=== PATIENT | male | born 1940 | race Caucasian/White ===

== ENCOUNTER 2025-04-25 11:33 | Outpatient (CLI) | payer MEDICARE, MEDICAID ==
[~2025-04-25 11:33] MED LIST: ATOR40TA PO; CLOP75TA34 PO; DIPH-735 PO; DULO60CA65 PO; LEVO125T PO; LOSA50TA64 PO; META-117 PO; OXYC-150 PO; PREG150C PO
--- NOTE | 2025-04-25 13:28 | RADIOLOGY REPORT ---
EXAM: CT CT SINUS HISTORY: POSTNASAL DRIP COMPARISON: None TECHNIQUE: Noncontrast axial CT images of the paranasal sinuses were performed. Coronal and sagittal reformatted images were obtained. Radiation dose: CTDIvol 54.49 mGy, DLP 725.2 mGy*cm. This CT exam was performed using one or more of the following dose reduction techniques: Automated exposure control, adjustment of the mA and/or kV according to patient size, or use of iterative reconstruction technique. FINDINGS: There is mild mucosal thickening of the right maxillary sinus. The other paranasal sinuses are clear. No facial bone fractures are identified. The nasal septum is deviated to the right. The OMCs are patent. No tyrone bullosa or Emiliana cells. The middle ear spaces and right mastoid air cells are clear. There is a small amount of fluid in the left mastoid air cells. There are postoperative changes of bilateral cataract extraction surgery. IMPRESSION: 1. Mild right maxillary sinus disease. The other paranasal sinuses are clear. 2. Rightward deviation of the nasal septum. 3. Small amount of fluid in the left mastoid air cells may be due to sterile fluid or mastoiditis.
== END 2025-04-25 23:59 | disposition home or self-care (01) ==
LOC: RAD 11:33
PROVIDERS: ATTEND Nurse Practitioner Occupational Health
DX: J32.0 Chronic maxillary sinusitis (principal); J34.2 Deviated nasal septum; J34.89 Other specified disorders of nose and nasal sinuses; R09.82 Postnasal drip; Z98.890 Other specified postprocedural states
CPT/HCPCS: 70486

== ENCOUNTER 2025-06-22 07:43 | Emergency (ER) | payer MEDICARE, MEDICAID ==
[~2025-06-22] VITALS: Ht 180.3 cm; Wt 85.6 kg
[2025-06-22 07:47] VITALS: TEMP 97.3
--- NOTE | 2025-06-22 08:47 | RADIOLOGY REPORT ---
CLINICAL INFORMATION: Cough. TECHNIQUE: Single AP portable chest radiograph was obtained. COMPARISON: None FINDINGS: Lungs: Clear. Cardiac: Heart size is within normal limits. Pacemaker leads extend to the right atrium and right ventricle. Pulmonary vasculature: Unremarkable. Mediastinum/mireya: Unremarkable. Bones: No acute osseous abnormality identified. Other: No other significant findings. IMPRESSION: No evidence of acute disease in the chest.
--- NOTE | 2025-06-22 08:52 | Physician Documentation ---
History of Present Illness ~ Chief Complaint: See Chief Complaint Stated Complaint: MULTIPLE MED COMPLAINTS Time Seen by MD: 09:19 Primary Medical Doctor: CONOR SNIDER An 85-year-old male who denies any history of chronic lung problems. He presents to the emergency department due to concerns for lack of improvement in a cough that he has had ever since exposure to chemicals. He just completed a course of antibiotics, last dose this morning. He denies chills or fever, but does endorse feeling overall unwell and having a cough that is productive of green sputum. Medication Reconciliation Allergies: Coded Allergies: shellfish derived (Verified Allergy, Severe, 06/22/25) fentanyl (Unverified Allergy, Unknown, 06/22/25) morphine (Unverified Allergy, Unknown, 06/22/25) Scheduled Atorvastatin Calcium* (Lipitor*), 1 TAB PO HS Clopidogrel Bisulfate (Clopidogrel), 75 MG PO DAILY Diphenhydramine Hcl (Sleep-Aid), 50 MG PO HS, (Reported) Duloxetine HCl (Duloxetine HCl), 1 CAP PO HS, (Reported) Levothyroxine Sodium (Synthroid), 1 TAB PO DAILY, (Reported) Losartan Potassium (Losartan Potassium), 1 TAB PO DAILY, (Reported) Metaxalone (Metaxalone), 1,600 MG PO HS, (Reported) Oxycodone HCl/Acetaminophen (Percocet 10-325 mg Tablet), 1 TAB PO Q4H Pregabalin (Lyrica), 1 CAP PO Q12H Past Medical History Past Medical History: High Cholesterol, Anemia, Hypothyroidism, Chronic Back Pain Past Surgical History: other Patient History: (COPD) Chronic obstructive lung disease MOTHER, Onset:40's - 50 (CVA) Cerebrovascular accident FATHER, Onset:60 years & older Alcohol Use: Occasionally Drug Use: none Physical Exam Vital Signs: Temperature: 97.3, Heart Rate: 58, Respiratory Rate: 20, BP: 137/71, Pulse Oximetry: 93, Weight: 85.600 Oxygen Flow Rate: 0 Progress Results/Orders Results/Orders Orders - SARA AMANDA NP Svn Treatment (06/22/25 09:36) Hs Troponin I W Calculations (06/22/25 09:36) Completed Orders - SARA AMANDA NP Cbc/Diff (06/22/25 08:52) Hs Troponin I W Calculations (06/22/25 08:52) CMP (06/22/25 08:52) PBNP (06/22/25 08:52) Electrocardiogram (06/22/25 09:36) Ipratropium/Albuterol Nebule (Ipratrop/A (06/22/25 09:40) Medications Received in ER Medications (Trade) Dose Ordered Sig/Shiva Route PRN Reason Start Time Stop Time Status Last Admin Dose Admin (ipratrop/ albuterol 0.5-3(2.5) MG/3ml nebule) 3 ml ONCE ONCE NEB 06/22/25 09:40 06/22/25 09:41 DC 06/22/25 10:10 3 ML Vital Signs 06/22/25 06/22/25 06/22/25 06/22/25 07:47 10:00 10:12 10:19 Temp 97.3 Pulse 58 60 65 Resp 20 18 20 20 B/P (MAP) 137/71 Pulse Ox 93 99 95 O2 Delivery Room Air* Room Air* O2 Flow Rate 0 0 0 FiO2 21 21 Laboratory Tests Test 06/22/25 10:45 White Blood Count 6.6 Red Blood Count 4.24 L Hemoglobin 12.1 L Hematocrit 37.0 L Mean Corpuscular Volume 87.2 Mean Corpuscular Hemoglobin 28.6 Mean Corpuscular Hemoglobin Concent 32.8 L Red Cell Distribution Width 18.1 H Platelet Count 121 L Mean Platelet Volume 8.3 Neutrophils (%) (Auto) 53.6 Lymphocytes (%) (Auto) 29.9 Monocytes (%) (Auto) 13.9 H Eosinophils (%) (Auto) 1.8 Basophils (%) (Auto) 0.8 Neutrophils # (Auto) 3.5 Lymphocytes # (Auto) 2.0 Monocytes # (Auto) 0.9 Eosinophils # (Auto) 0.1 Basophils # (Auto) 0.1 CBC Comment Sodium Level 140 Potassium Level 4.4 Chloride Level 106 Carbon Dioxide Level 30.0 Anion Gap 4 L Blood Urea Nitrogen 18 Creatinine 1.32 H Estimated GFR/1.73 m2 51 BUN/Creatinine Ratio 13.6 Glucose Level 89 Calcium Level 8.2 L Total Bilirubin 0.4 Aspartate Amino Transf (AST/SGOT) 27 Alanine Aminotransferase (ALT/SGPT) 17 Alkaline Phosphatase 85 Troponin I High Sensitivity 19 Pro-B-Type Natriuretic Peptide 793 H Total Protein 6.2 L Albumin 3.1 L Globulin 3.1 Albumin/Globulin Ratio 1.0 L Chemistry Comments EKG/XRAY/CT/US/VASC/MRI Chest X-Ray : Additional Comments [facility] [address] , [place], [facility] [address] DIAGNOSTIC RADIOLOGY Patient: ROCKY CAVAZOS Medical Record: [id number] [facility] : 1940, Age: 85 Sex: Male Location: ER Patient Status: [facility] ER Service Date/Time: 06/22/25758 Ordering Physician: NICOLE FRANKS MD Exam: CHEST,SINGLE VIEW CLINICAL INFORMATION: Cough. TECHNIQUE: Single AP portable chest radiograph was obtained. COMPARISON: None FINDINGS: Lungs: Clear. Cardiac: Heart size is within normal limits. Pacemaker leads extend to the right atrium and right ventricle. Pulmonary vasculature: Unremarkable. Mediastinum/mireya: Unremarkable. Bones: No acute osseous abnormality identified. Other: No other significant findings. IMPRESSION: No evidence of acute disease in the chest. Electronically Signed by:NICANOR CAMPO DO Date & Time: 06/22/25844 Dictated by: NICANOR CAMPO DO Dictation date and time: 06/22/25824 Primary Care Provider: NO PRIMARY CARE PROVIDER cc: NICOLE FRANKS MD ~ Medical Decision Making Additional information obtaine: family Findings accompanies him Differential Dx:Considerations: Include: Allergic rhinitis, Influenza, Otitis media, Peritonsillar abscess, Pharyngitis-Diphtheria, Pharyngitis-Streptoccal, Pharyngitis-Viral, Pneumonia, Pnuemonitis, Sinusitis, URI Differential Diagnosis No PNA. Very elderly. Productive cough with green sputum. Tx with medrol dose pack, tessalon perles, doxycycline. Return if worse. Departure Time of Disposition: 11:54 Disposition: 01 HOME / SELF CARE / HOMELESS Impression: Primary Impression: Cough Condition: Stable Discharge Instructions: Cough, Adult Additional Instructions: No Pneumonia on CXR. Labs don't show evidence of sepsis. See your primary care for followup within the next few days. Use the prescribed tessalon perles and medrol dosepack. This should help your cough. Take the doxycycline. Referrals: NO PRIMARY CARE PROVIDER (PCP) Prescriptions Benzonatate* (Benzonatate*) 100 Mg Capsule 1 CAP PO Q8H for cough for 10 Days, #30 CAP Prov: SARA AMANDA NP 06/22/25 Doxycycline Hyclate (Doxycycline Hyclate) 100 Mg Capsule 1 CAP PO Q12H for 7 Days, #14 CAP Prov: SARA AMANDA NP 06/22/25 Methylprednisolone (Medrol Dosepak) 4 Mg Tab.ds.pk 0 PO UD, #21 TAB 0 Refills take 6 Pills Day 1, 5 Pills Day 2, 4 Pills Day 3, 3 Pills Day 4, 2 Pills Day 5 and 1 pill Day 6 Prov: SARA AMANDA NP 06/22/25 Education Educated: Patient Educated regarding: diagnosis, treatment, prognosis, need for follow up Signature Scribe Signature: x Attestation: The note accurately reflects work and decisions made by me.Sara Pelaez NP 06/22/25 11:57 SARA AMANDA NP Jun 22, 2025 08:52
--- NOTE | 2025-06-22 10:07 | ELECTROCARDIOGRAPH REPORT ---
[facility] Test Date: 2025-06-22 Test Time: 10:04:57 Pat Name: ROCKY CAVAZOS Department: [facility]- Patient ID: [facility]-[id number] Room: Gender: M Outpatient Interviewing Clerk: : 1940 Requested By: LISHA AMANDA Order Number: [id number] Reading MD: Measurements Intervals [place] Rate: 60 P: -23 [place]: 190 QRS: -59 QRSD: 153 T: 93 QT: 480 QTc: 480 Interpretive Statements Atrial-ventricular dual-paced rhythm No further analysis attempted due to paced rhythm Baseline wander in lead(s) V6 Please click the below link to view image of tracing.
[2025-06-22] MEDS: ipratropium/albuterol 3ml nebule NEB ONE (10:10)
[2025-06-22 10:12] VITALS: PULSE 60; RESP 20; O2SAT 99
[2025-06-22 10:19] VITALS: PULSE 65; RESP 20; O2SAT 95
[2025-06-22 11:12] LABS: MEAN PLATELET VOLUME 8.3 FL (7.4-10.4); RED CELL DISTRIBUTION WIDTH 18.1 % (11.5-14.5)
[2025-06-22 11:28] LABS: CREATININE 1.32 MG/DL (0.60-1.10); TOTAL CARBON DIOXIDE 30.0 MMOL/L (24-32); eCRCL 42 ML/MIN; eGFR 51 ML/MIN
[2025-06-22 11:33] LABS: PRO BRAIN NATRIURETIC PEPTIDE 793 PG/ML (0-450)
[2025-06-22] MEDS ORDERED: METH4TAB81 PO (11:55)
[2025-06-22] MEDS ORDERED: DOXY-1 PO (11:55)
[2025-06-22] MEDS ORDERED: BENZ-38 PO (11:56)
[2025-06-22 13:08] VITALS: BP 156/67; PULSE 67; RESP 19; O2SAT 98
== END 2025-06-22 13:11 | disposition home or self-care (01) ==
LOC: ER 07:44
DX: R05.9 Cough, unspecified (principal); E03.9 Hypothyroidism, unspecified; E78.00 Pure hypercholesterolemia, unspecified; G89.29 Other chronic pain; J44.9 Chronic obstructive pulmonary disease, unspecified; D64.9 Anemia, unspecified; Z95.0 Presence of cardiac pacemaker; Z91.013 Allergy to seafood; Z88.5 Allergy status to narcotic agent; Z79.899 Other long term (current) drug therapy; Z72.89 Other problems related to lifestyle
CPT/HCPCS: 36415; 71045; 80053; 83880; 84484; 85025; 93005; 94640; 94760; 99285